=== PATIENT | female | born 1975 | race Caucasian/White ===

== ENCOUNTER 2018-09-07 19:22 | Emergency (ER) | payer BC ==
[~2018-09-07] VITALS: Ht 160 cm; Wt 83.0 kg
[~2018-09-07 19:22] MED LIST: AUGMENTIN 875875 MG PO; CLARITIN10 MG PO; HYDROCODONE-AP1 EAC6 PO; LORTABELXR PO; NORCO 5-325 TA1 EACH PO; PROVENTIL HFA6.7 G1
[2018-09-07] MEDS ORDERED: ADVAIR HFA 230M12 GM INH (19:32)
[2018-09-07 20:05] LABS: ABSOLUTE EOSINOPHILS 0.3 thou/uL (0.0-0.7); ABSOLUTE LYMPHOCYTES 2.2 thou/uL (0.8-5.3); ABSOLUTE MONOCYTES 0.4 thou/uL (0.0-1.2); ABSOLUTE NEUTROPHILS 3.7 thou/uL (1.6-8.1); BASOPHILS 0.7 %; EOSINOPHILS 4.2 %; HEMATOCRIT 39.4 % (37.0-47.0); HEMOGLOBIN 13.5 gm/dL (12.0-15.0); LYMPHOCYTES 33.1 %; MCH 31.1 pg (26.0-34.0); MCHC 34.3 g/dL (28.0-37.0); MCV 90.6 fL (80.0-100.0); MONOCYTES 5.4 %; MPV 7.8 fl. (7.2-11.1); NUCLEATED RBCS 0 /100WBC; PLATELET COUNT* 228 thou/uL (150-400); POLYS 56.6 %; RBC 4.34 mil/uL (4.20-5.00); RDW-CV 12.8 % (10.5-14.5); WBC 6.6 thou/uL (4.0-11.0)
[2018-09-07 20:08] LABS: CALCIUM 8.4 mg/dL (8.5-10.1); POTASSIUM 3.5 mmol/L (3.5-5.1)
[2018-09-07] MEDS ORDERED: ZANAFLEX4 MG PO (20:25)
[2018-09-07] MEDS ORDERED: IBUPROFEN 800800 M1 PO (20:25)
[2018-09-07 20:33] VITALS: BP 110/62
== END 2018-09-07 20:33 | disposition home or self-care (01) ==
LOC: M.ERS 19:22
PROVIDERS: Nurse Practitioner Family
DX: M79.604 Pain in right leg (principal); F17.200 Nicotine dependence, unspecified, uncomplicated; J45.909 Unspecified asthma, uncomplicated; Z88.6 Allergy status to analgesic agent; Z90.49 Acquired absence of other specified parts of digestive tract; Z86.718 Personal history of other venous thrombosis and embolism